=== PATIENT | female | born 1955 | race Caucasian/White ===

== ENCOUNTER → 2018-01-04 09:33 | Outpatient (CLI) | payer BC, SELFPAY ==
--- NOTE | 2018-01-04 09:41 | XR_ITS ---
XR ankle RT min 3V HISTORY: ITS.REASON: PAIN ORDERING PHYSICIAN: Bernice Winn PATIENT AGE: 62 years FINDINGS: No fracture or dislocation. No lytic or blastic change. There are mild hypertrophic changes at the medial malleolus region. Ankle joint space is well-preserved. Calcifications are present along the plantar surface of the foot at the region of the plantar fascia may be related to chronic plantar fasciitis. There is also a small calcaneal spur. IMPRESSION: 1. No acute finding of the ankle joint. 2. Mild hypertrophic changes of the medial malleolus. 3. Calcification along the plantar surface of the foot anterior to the calcaneus which may represent chronic plantar fasciitis
--- NOTE | 2018-01-04 09:41 | XR_ITS ---
XR hip LT 2-3V w/pelvis HISTORY: Left-sided hip pain ORDERING PHYSICIAN: Bernice Winn PATIENT AGE: 62 years FINDINGS: There are mild osteoarthritic changes of the left hip with slight decrease in the joint space medially. Hypertrophic changes are present at the greater trochanter and along the left ilium laterally. There is a well-circumscribed 2 cm calcific density in the right paracentral aspect of the pelvis and may represent small fibroid. No fracture or dislocation. There are degenerative changes of the left SI joint and of the facets on the left at L5-S1 IMPRESSION: 1. No acute fracture. 2. Mild osteoarthritic change of the left hip and SI joint
== END ==
PROVIDERS: PCP Nurse Practitioner Family; Visit Provider Nurse Practitioner Family
DX: M25.552 Pain in left hip (principal); M25.571 Pain in right ankle and joints of right foot; G89.29 Other chronic pain
CPT/HCPCS: 73502; 73610

== ENCOUNTER 2018-02-11 16:00 | Outpatient (RCR) | payer BC, SELFPAY | END 2018-02-25 13:32 | disposition home or self-care (01) | LOC: PT 16:00 | PROVIDERS: Family Provider Internal Medicine Adolescent Medicine; PCP Nurse Practitioner Family; Visit Provider Nurse Practitioner Family | DX: M25.552 Pain in left hip (principal); R26.9 Unspecified abnormalities of gait and mobility | CPT/HCPCS: 97033; 97110; 97163 ==

== ENCOUNTER → 2018-04-10 10:12 | Outpatient (CLI) | payer BC, SELFPAY ==
--- NOTE | 2018-04-10 | XR_ITS ---
XR abdomen min 2V HISTORY: ITS.REASON: DIARRHEA, HX OF PANCREATITIS ORDERING PHYSICIAN: Bernice Winn PATIENT AGE: 63 years COMPARISON: None FINDINGS: Lumbar scoliosis convex right. Surgical clip right upper quadrant. Scattered air-fluid levels are present within nondistended large bowel. No intestinal obstruction or free air. There is a rounded calcific density overlying the lower aspect of the sacrum on the right. Was present on previous CT scan of 06/22/2017 In the right adnexal area and may represent partially calcified exophytic fibroid or calcification of the right ovary. IMPRESSION: Nonspecific nonobstructive bowel gas pattern with scattered air-fluid levels in the large bowel which may be seen with diarrhea
[2018-04-10 10:16] LABS: Adenovirus F 40/41, stool Not Detected (NotDetected); Astrovirus Not Detected (NotDetected); Campylobacter Not Detected (NotDetected); Clostridium Difficile A/B, PCR Not Detected (NotDetected); Cryptosporidium Not Detected (NotDetected); Cyclospora Cayetanesis Not Detected (NotDetected); Entamoeba histolytica Not Detected (NotDetected); Enteroaggregative E coli Not Detected (NotDetected); Enteropathogenic E coli Not Detected (NotDetected); Enterotoxigenic E coli Not Detected (NotDetected); Giardia lamblia Not Detected (NotDetected); Norovirus Not Detected (NotDetected); Plesimonas Shigalloides, PCR Not Detected (NotDetected); Rotavirus A Not Detected (NotDetected); Salmonella, PCR Not Detected (NotDetected); Sapovirus Not Detected (NotDetected); Shiga-like toxin E coli Not Detected (NotDetected); Shigella Enterovasive E coli Not Detected (NotDetected); Vibrio Cholerae Not Detected (NotDetected); Vibrio, PCR Not Detected (NotDetected); Yersinia Entercolitica, PCR Not Detected (NotDetected)
[2018-04-10 17:14] LABS: Basophils % 0.5 % (0.1-2.0); Eosinophils # 0.4 K/mm3 (0.0-0.4); Eosinophils % 5.4 % (0.1-12.0); Hematocrit 40.3 % (37.0-47.0); Hemoglobin 13.5 g/dL (12.2-16.2); Lymphocytes # 2.4 K/mm3 (0.7-4.5); Lymphocytes % 32.2 K/mm3 (10-50); Mean Corpuscular HGB Conc 33.6 g/dL (31.8-35.4); Mean Corpuscular Hemoglobin 31.7 pg (27.0-31.2); Mean Corpuscular Volume 94.5 fl (81-99); Mean Platelet Volume 7.5 fl (7.4-10.4); Monocytes # 0.7 K/mm3 (0.1-1.0); Monocytes % 9.4 % (1.7-9.3); Neutrophils % 52.5 % (37.0-80.0); Platelet Count 255 K/mm3 (142-424); Red Blood Count 4.26 M/mm3 (4.20-5.40); Red Cell Distribution Width 13.2 % (11.5-17.5); White Blood Count 7.5 K/mm3 (4.8-10.8)
[2018-04-10 17:21] LABS: Alanine Aminotransferase 32 U/L (12-78); Albumin Level 3.4 gm/dL (3.4-5.0); Albumin/Globulin Ratio 1.1 (1.1-1.8); Alkaline Phosphatase 68 U/L (46-116); Amylase 48 U/L (25-125); Anion Gap 10.2 mEq/L (5-15); Aspartate Amino Transferase 20 U/L (15-37); Bilirubin,Total 0.4 mg/dL (0.2-1.0); Blood Urea Nitrogen 15 mg/dL (7-18); Calcium 8.6 mg/dL (8.5-10.1); Carbon Dioxide 31 mmol/L (21.0-32.0); Chloride 102 mmol/L (98-107); Creatinine,Serum 0.86 mg/dL (0.55-1.02); Estimated Glomerular Filt Rate 67 ml/min (>60); GFR (African American) 81 ML/MIN (>60); Glucose 129 mg/dL (74-106); Lipase 62 u/L (73-393); Potassium 4.2 mmoL/L (3.5-5.1); Sodium 139 mmol/L (136-145); Total Protein,Serum 6.4 gm/dL (6.4-8.2)
== END ==
PROVIDERS: Visit Provider Nurse Practitioner Family
DX: R19.7 Diarrhea, unspecified (principal); Z87.19 Personal history of other diseases of the digestive system
CPT/HCPCS: 36415; 74019; 80053; 82150; 83690; 85025; 87507

== ENCOUNTER 2018-09-25 08:52 | Outpatient (CLI) | payer BC, SELFPAY ==
[2018-09-25 09:18] VITALS: RESP 18
[2018-09-25 09:24] LABS: Alanine Aminotransferase 26 U/L (12-78); Albumin Level 3.5 gm/dL (3.4-5.0); Alkaline Phosphatase 65 U/L (46-116); Amylase 57 U/L (25-115); Anion Gap 12.5 mEq/L (5-15); Aspartate Amino Transferase 15 U/L (15-37); Bilirubin,Total 0.5 mg/dL (0.2-1.0); Blood Urea Nitrogen 16 mg/dL (7-18); Calcium 9.2 mg/dL (8.5-10.1); Carbon Dioxide 28 mmol/L (21.0-32.0); Chloride 102 mmol/L (98-107); Estimated Glomerular Filt Rate 85 ml/min (>60); GFR (African American) 103 ML/MIN (>60); Globulin 3.6 gm/dl (1.3-3.2); Glucose 122 mg/dL (74-106); Lipase 94 u/L (73-393); Potassium 3.5 mmoL/L (3.5-5.1); Sodium 139 mmol/L (136-145); Total Protein,Serum 7.1 gm/dL (6.4-8.2)
[2018-09-25 09:27] LABS: Basophils % 0.3 % (0.1-2.0); Eosinophils # 0.2 K/mm3 (0.0-0.4); Eosinophils % 2.2 % (0.1-12.0); Hematocrit 40.8 % (37.0-47.0); Hemoglobin 12.9 g/dL (12.2-16.2); Lymphocytes # 2.3 K/mm3 (0.7-4.5); Mean Corpuscular HGB Conc 31.6 g/dL (31.8-35.4); Mean Corpuscular Volume 97.8 fl (81-99); Mean Platelet Volume 7.6 fl (7.4-10.4); Monocytes # 0.5 K/mm3 (0.1-1.0); Monocytes % 6.3 % (1.7-9.3); Neutrophils # 4.9 K/mm3 (1.8-7.8); Neutrophils % 62.2 % (37.0-80.0); Platelet Count 253 K/mm3 (142-424); Red Blood Count 4.17 M/mm3 (4.20-5.40); Red Cell Distribution Width 12.9 % (11.5-17.5); White Blood Count 7.8 K/mm3 (4.8-10.8)
--- NOTE | 2018-09-25 09:45 | PC.NURSE ---
09/25/18 0918 Toradol 30mg IM given per R deltoid. Pt abdirizak well
== END 2018-09-25 09:37 | disposition home or self-care (01) ==
LOC: LAB 08:53 → INF 09:06
PROVIDERS: PCP Nurse Practitioner Family; Visit Provider Nurse Practitioner Family
DX: M54.9 Dorsalgia, unspecified (principal); R19.7 Diarrhea, unspecified; R11.10 Vomiting, unspecified; Z87.442 Personal history of urinary calculi
CPT/HCPCS: 36415; 80053; 82150; 83690; 85025; 87040; 96372

== ENCOUNTER → 2018-09-26 07:55 | Outpatient (CLI) | payer BC, SELFPAY ==
--- NOTE | 2018-09-26 08:00 | CT_ITS ---
CT abdomen pelvis wo con CLINICAL INDICATION: Right flank pain ITS.REASON: HEMATURIA, MID BACK PAIN RT SIDE ORDERING PHYSICIAN: Bernice Winn PATIENT AGE: 63 years COMPARISON: 06/22/2017 TECHNIQUE: Axial images obtained with sagittal and coronal reformats. All CT scans at the facility use one or more dose reduction, viz: automated exposure control, ma/kV adjustment per patient size (including targeted exams where dose is matched to indication, i.e. head), or iterative reconstruction technique. PROCEDURE: Oral Contrast: None IV Contrast: None . FINDINGS: No acute finding in the lung bases. The liver, spleen, adrenal glands, pancreas, and kidneys have an unremarkable unenhanced appearance. No renal or ureteral calculi. There are 2 small calcific densities in the left pelvic region which are felt to be out of the plane of the ureter and due to small phleboliths having a similar appearance on 06/22/2017. There are postcholecystectomy changes. No evidence of appendicitis intestinal obstruction or free air. No evidence of diverticulitis. There are a few diverticula noted within the descending and sigmoid colon. There is a ringlike area of calcification in the right adnexal area and may be due to a small fibroid measuring 14 mm unchanged. No pelvic mass abnormal fluid collection or focal inflammatory changes evident within the pelvis There are degenerative changes in the lumbar spine. IMPRESSION: 1. No acute abdominal pelvic findings. No obstructing renal or ureteral calculi. 2. Nonacute findings as described above.
== END ==
PROVIDERS: PCP Internal Medicine Adolescent Medicine; Visit Provider Nurse Practitioner Family
DX: R31.9 Hematuria, unspecified (principal); M54.9 Dorsalgia, unspecified
CPT/HCPCS: 74176

== ENCOUNTER → 2020-09-07 09:06 | Outpatient (CLI) | payer BC, SELFPAY ==
--- NOTE | 2020-09-07 09:09 | MM_ITS ---
PROCEDURE: MM DIG SCREENING MAMM BI W/CAD Digital Breast Tomosynthesis Included CLINICAL INDICATION: SCREENING There is a history of breast cancer in patient's mother COMPARISON: MG DMSB DIG MAMM-SCREEN JULIANA from 03/18/2015 CR ABD2V XR abdomen min 2V from 04/10/2018 TECHNIQUE: Standard CC and MLO images and 3D Tomosynthesis was obtained. R2 CAD reviewed. FINDINGS: The breasts are composed primarily of fat with scattered fibroglandular densities throughout each breast. There are scattered benign-appearing microcalcifications in each breast. There is a stable benign-appearing nodular density upper-outer quadrant left breast likely an intramammary node. There is a subtle density central portion left breast which was seen previously but now there are associated microcalcifications and recommend the patient return for spot compression magnification view and ultrasound for additional evaluation. IMPRESSION: Fatty type breast parenchyma with possible developing asymmetric lesion left breast BI-RAD Category: 0 Need Additional Imaging Evaluation FOLLOW-UP: IMM Immediate Follow-up Recommended (A letter has been sent to the patient regarding results of the study.) Dictated by: Dr. Rajeev Castellano MD 09/08/2020 08:44 Dr. Rajeev Castellano MD in [place] 09/08/2020 08:44
--- NOTE | 2020-09-07 09:09 | XR_ITS ---
PROCEDURE: XR DEXA AXIAL SKELETON CLINICAL HISTORY: POST-MENOPAUSAL COMPARISON: No exams were available for comparison FINDINGS: The right hip BMD is 0.939 with a T-score of 0.8. The left hip BMD is 0.959 with a T-score of 0.1. The lumbar spine BMD is 1.392 with a T-score of 3.1. IMPRESSION: This patient is considered normal according to the World Health Organization criteria. Fracture risk is low. Based on these results a follow-up exam is recommended in 2 year. Dictated by: Yunior Zelaya MD 09/07/2020 20:46 Yunior Zelaya MD in [place] 09/08/2020 18:26
== END ==
PROVIDERS: PCP Nurse Practitioner Family; Visit Provider Nurse Practitioner Family
DX: Z12.31 Encounter for screening mammogram for malignant neoplasm of breast (principal); Z13.820 Encounter for screening for osteoporosis; Z78.0 Asymptomatic menopausal state
CPT/HCPCS: 77063; 77067; 77080

== ENCOUNTER 2020-10-26 09:00 | Outpatient (RCR) | payer BC, SELFPAY | END 2021-03-08 14:40 | disposition home or self-care (01) | LOC: PT 09:00 | PROVIDERS: PCP Internal Medicine Adolescent Medicine; Visit Provider Orthopaedic Surgery Adult Reconstructive Orthopaedic Surgery | DX: M25.512 Pain in left shoulder (principal) | CPT/HCPCS: 97010; 97014; 97016; 97110; 97140; 97163; 97164; G0283 ==

== ENCOUNTER 2021-01-12 12:55 | Outpatient (CLI) | payer BC, SELFPAY ==
[2021-01-12] VITALS (18 sets, daily range): BP systolic 108–128; BP diastolic 52–76; PULSE 80–95; RESP 16–18; TEMP 36.3–37.2; O2SAT 95–100; BMI 36.7
[2021-01-12 13:24] LABS: Basophils # 0.1 K/mm3 (0-0.2); Basophils % 0.7 % (0.1-2.0); Eosinophils # 0.3 K/mm3 (0.0-0.4); Eosinophils % 3.5 % (0.1-12.0); Lymphocytes # 2.7 K/mm3 (0.7-4.5); Lymphocytes % 32.5 % (10-50); Mean Corpuscular HGB Conc 25.3 g/dL (31.8-35.4); Mean Corpuscular Hemoglobin 16.4 pg (27.0-31.2); Mean Platelet Volume 9.2 fl (7.4-10.4); Monocytes # 0.6 K/mm3 (0.1-1.0); Monocytes % 6.7 % (1.7-9.3); Neutrophils # 4.6 K/mm3 (1.8-7.8); Neutrophils % 56.6 % (37.0-80.0); Platelet Count 314 K/mm3 (142-424); Red Blood Count 2.82 M/mm3 (4.20-5.40); Red Cell Distribution Width 19.7 % (11.5-17.5); White Blood Count 8.2 K/mm3 (4.8-10.8)
[2021-01-12 13:32] LABS: Hematocrit 18.3 % (37.0-47.0)
[2021-01-12 13:50] LABS: Hemoglobin 4.7 g/dL (12.2-16.2)
--- NOTE | 2021-01-12 15:45 | PC.NURSE ---
1545 - BLOOD TRANSFUSION RATE AT 100 ML/HR AT THIS TIME.
--- NOTE | 2021-01-12 16:15 | PC.NURSE ---
1615-INCREASED RATE TO 150 ML/HR AT THIS TIME.
--- NOTE | 2021-01-12 16:45 | PC.NURSE ---
1645 - INCREASED RATE TO 200 ML/HR AT THIS TIME.
[2021-01-12 21:55] LABS: Hematocrit 23.6 % (37.0-47.0); Hemoglobin 6.8 g/dL (12.2-16.2)
== END 2021-01-12 21:14 | disposition home or self-care (01) ==
PROVIDERS: PCP Internal Medicine Adolescent Medicine; Visit Provider Nurse Practitioner Family
DX: D64.9 Anemia, unspecified (principal); D58.2 Other hemoglobinopathies
CPT/HCPCS: 36415; 36430; 85014; 85018; 85025; 86850; P9016

== ENCOUNTER → 2021-01-14 08:00 | Outpatient (CLI) | payer BC, SELFPAY ==
[2021-01-14] VITALS (21 sets, daily range): BP systolic 101–133; BP diastolic 46–72; PULSE 72–92; RESP 18–20; TEMP 36.6–37.2; O2SAT 97–100; BMI 36.7
--- NOTE | 2021-01-14 12:00 | PC.NURSE ---
second unit of blood started. Verified by 2 RN's. patient eating lunch. no needs voiced by patient.
[2021-01-14 15:11] LABS: Hematocrit 30.4 % (37.0-47.0); Hemoglobin 9.4 g/dL (12.2-16.2)
== END ==
PROVIDERS: PCP Internal Medicine Adolescent Medicine; Visit Provider Internal Medicine Adolescent Medicine
DX: D64.9 Anemia, unspecified (principal)
CPT/HCPCS: 36415; 36430; 85014; 85018; G0463; P9016

== ENCOUNTER → 2021-01-16 07:46 | Outpatient (CLI) | payer BC, SELFPAY ==
[2021-01-16 08:01] LABS: Basophils # 0.1 K/mm3 (0-0.2); Basophils % 0.7 % (0.1-2.0); Eosinophils # 0.3 K/mm3 (0.0-0.4); Eosinophils % 2.8 % (0.1-12.0); Hemoglobin 10.2 g/dL (12.2-16.2); Lymphocytes # 2.1 K/mm3 (0.7-4.5); Lymphocytes % 24.2 % (10-50); Mean Corpuscular HGB Conc 29.2 g/dL (31.8-35.4); Mean Corpuscular Hemoglobin 21.7 pg (27.0-31.2); Mean Corpuscular Volume 74.2 fl (81-99); Mean Platelet Volume 8.4 fl (7.4-10.4); Monocytes # 0.7 K/mm3 (0.1-1.0); Monocytes % 7.4 % (1.7-9.3); Neutrophils # 5.7 K/mm3 (1.8-7.8); Neutrophils % 64.9 % (37.0-80.0); Platelet Count 242 K/mm3 (142-424); Red Blood Count 4.71 M/mm3 (4.20-5.40); Red Cell Distribution Width 21.4 % (11.5-17.5); White Blood Count 8.8 K/mm3 (4.8-10.8)
[2021-01-16 08:10] LABS: Anion Gap 7.3 mEq/L (5-15); Blood Urea Nitrogen 9 mg/dl (7-17); Calcium 8.9 mg/dl (8.4-10.2); Carbon Dioxide 27 mmol/L (22.0-30.0); Chloride 107 mmol/L (98-107); Estimated Glomerular Filt Rate 84 ml/min (>60); GFR (African American) 102 ML/MIN (>60); Glucose 109 mg/dl (74-100); Potassium 4.3 mmoL/L (3.5-5.1); Sodium 137 mmol/L (136-145)
[2021-01-16 16:58] LABS: Vitamin B12 > 1000 pg/mL (239-931)
== END ==
PROVIDERS: Nurse Practitioner Family; Visit Provider Internal Medicine Adolescent Medicine
DX: Z01.812 Encounter for preprocedural laboratory examination (principal); Z20.822 Contact with and (suspected) exposure to COVID-19; D64.9 Anemia, unspecified; Z13.810 Encounter for screening for upper gastrointestinal disorder
CPT/HCPCS: 36415; 80048; 82607; 82746; 85025; U0003

== ENCOUNTER 2021-01-18 07:36 | Day surgery (SDC) | payer BC, SELFPAY ==
[2021-01-16 15:51] VITALS: BMI 35.3
[2021-01-18] VITALS (8 sets, daily range): BP systolic 89–138; BP diastolic 56–77; PULSE 75–88; RESP 18–20; TEMP 36.3; O2SAT 98–100
--- NOTE | 2021-01-18 07:51 | HMH.SCOPE ---
- Procedure: Date: 01/18/21 Patient Date of :: 1955 Procedure Performed:: 1. Esophagogastroduodenoscopy with biopsies 2. Total colonoscopy to terminal ileum with polypectomy using a hot snare after injection of Eleview Indications:: Patient is a 65-year-old female referred by Luna Winn for upper endoscopy. I had seen the patient in the past for biliary pancreatitis. I also had performed colonoscopy on her on 05/13/2018 for change in bowel habits. She had no polyps but had biopsy chronic lymphocytic colitis. Recently she has had some anemia. She is required 4 unit blood transfusion. She denies any change in her stools. Given the potential for GI blood loss anemia plan was made for upper endoscopy and colonoscopy. Performing Provider:: Jeevan Shaw MD Referring Provider:: Luna Winn Sedation:: MAC sedation Procedure:: Patient was taken to endoscopy procedure room. She was positioned in lateral decubitus position. Adequate intravenous sedation was achieved with anesthesia titration of propofol. Olympus endoscope was inserted via the oropharynx. Is advanced to the esophagus. Esophagus appeared unremarkable. Stomach was cannulated and insufflated. Retroflexion revealed no evidence of any appreciable hiatal hernia. Pylorus was traversed. Duodenum appeared unremarkable. Within the gastric lumen gastric antral mucosal biopsy was obtained for CLOtest for H. pylori. Gastric biopsy was obtained for histopathologic analysis. Distal esophageal biopsy was obtained. Endoscope was withdrawn. Patient was positioned for colonoscopy. Digital examination was performed which was unremarkable. Variable stiffness Olympus colonoscope was inserted via the anus. It was advanced to the cecum. Colonic preparation was good. Ileocecal valve and appendiceal orifice were clearly identified. Colonoscope was advanced a short distance into the terminal ileum which appeared grossly normal. Colonoscope was withdrawn through the colon. In the ascending colon there was a subtle but relatively large flat sessile adenomatous polyp. Appreciable amount of Eleview was injected submucosally circumferentially around the polyp. Ultimately the polyp was able to be removed in a piecemeal fashion using hot snare. It appears that the polyp had been removed in its entirety. This was sent as the ascending colon polyp. At the completion of the polypectomy Melissa ink was injected submucosally to joanna the area for future reference. Endoscope was withdrawn through the remainder of the colon with careful surveillance. There were a few scattered left-sided diverticuli. Retroflexion within the rectum revealed no evidence of any bleeding internal hemorrhoids. Colonoscope was withdrawn. Findings:: Normal upper endoscopy Ascending colon polyp, large, flat and sessile Rare diverticuli Recommendations:: No obvious source on upper endoscopy or colonoscopy which would attribute to potential gastrointestinal source of blood loss resulting in her anemia. Of course small bowel etiology cannot be ruled out. Likely repeat colonoscopy 1 year given the early development of this polyp and due to its size. Complications:: None immediately apparent Estimated blood obtained (mL): 4
[2021-01-18 08:35] LABS: POC Glucose,Bedside 124 (70-110)
--- NOTE | 2021-01-18 11:04 | HMH.ANESCL ---
[facility] Anesthesia Checklist - Patient Identification Patient Identification: Arm Band - Structural Data Admitted From: Home Planned Operative Procedure/s: EGD/Colonoscopy Consent for Planned Operative Procedure(s) Verified: Yes Verified Documents: Surgical Consent, History and Physical - NPO Status Verified Time NPO: 00:00 - Additional verifications Anesthesia Reactions: No - Airway Assessment C-Spine Mobility Assessed: Yes TMJ Mobility Assessed: Yes Dentition: Good Dentition - Neurological Assessment Level of Consciousness: Awake, Alert - Anesthesia Plan Anesthesia Risk discussed: Yes Anesthesia Plan: Verified ASA Class: III Anesthesia Type: MAC [facility] History Medical History: Reports:: Diabetes Mellitus Type 2, Gastroesophageal Reflux Disease(GERD), Hyperlipidemia, Hypertension Denies:: Cancer, Diabetes Mellitus Type 1, Internal Pacemaker, Lung Disease, MRSA, Seizures *Have you ever received a pneumonia vaccine?: Yes *Have you received a flu vaccine this season?: Yes Other Medical History: Reports: Anemia, Arthritis Anesthesia experience/problems:: None Other Surgeries: Yes: Cholecystectomy, Colonoscopy, Tubal Ligation. No: Pacemaker Amputation: No Fractures: No - *Social History Last grade of school completed: High school graduate Smoking Status: Never smoker Alcohol Intake: never Substance Use Type: denies use *Occupational Status:: retired Housing: house Household Members: spouse *Travel in the last 8 weeks: None Family Hx:: Cancer, Diabetes
== END 2021-01-18 10:48 | disposition home or self-care (01) ==
LOC: OUTP 07:37
PROVIDERS: PCP Internal Medicine Adolescent Medicine; Visit Provider Surgery
PROC: 0DJ08ZZ Inspection of Upper Intestinal Tract, Via Natural or Artificial Opening Endoscopic (ICD-10-PCS; CPT 43235; principal; 2021-01-18 08:45)
DX: D64.9 Anemia, unspecified (principal); K63.5 Polyp of colon; K57.30 Diverticulosis of large intestine without perforation or abscess without bleeding; E11.9 Type 2 diabetes mellitus without complications; E78.5 Hyperlipidemia, unspecified; I10 Essential (primary) hypertension; K21.9 Gastro-esophageal reflux disease without esophagitis; Z83.3 Family history of diabetes mellitus; Z80.9 Family history of malignant neoplasm, unspecified; Z79.82 Long term (current) use of aspirin; Z79.899 Other long term (current) drug therapy
CPT/HCPCS: 45385; 45381; 43239; 82962; 87339; J2704

== ENCOUNTER → 2021-01-20 14:01 | Outpatient (CLI) | payer BC, SELFPAY ==
--- NOTE | 2021-01-20 14:03 | MM_ITS ---
PROCEDURE: MM DIG MAMM DX UNILAT LT CAD Digital Breast Tomosynthesis Included CLINICAL INDICATION: ABN MAMM OF LT BREAST COMPARISON: MG DMSB DIG MAMM-SCREEN JULIANA from 03/18/2015 MG MM DIG SCREENING MAMM BI W/CAD from 09/07/2020 US US BREAST LT COMPLETE from 01/20/2021 TECHNIQUE: Standard CC and MLO images and 3D Tomosynthesis was obtained. R2 CAD reviewed. FINDINGS: Spot-compression MLO and CC views were obtained and 90 degree lateral view. The small area of subtle increased density with somewhat ill-defined borders with a central tiny benign-appearing microcalcification. Ultrasound performed same date showed no suspicious correlation this location. IMPRESSION: Probable small lipoma with no suspicious characteristics seen BI-RAD Category: 2 Benign Finding(s) FOLLOW-UP: 1YR 1 Year Follow-up (A letter has been sent to the patient regarding results of the study.) Dictated by: Dr. Rajeev Castellano MD 01/20/2021 15:49 Dr. Rajeev Castellano MD in [place] 01/20/2021 15:49
--- NOTE | 2021-01-20 14:04 | US_ITS ---
PROCEDURE: US BREAST LT COMPLETE CLINICAL INDICATION: ABN MAMM OF LT BREAST COMPARISON: No exams were available for comparison FINDINGS: There are 2 small slightly hyperechoic lesions within the breast with homogeneous echogenicity likely representing small lipomas 1 at the 2 o'clock position mid breast measures 1.6 x 0.5 by 1.4 cm. The other 1 is located 12 o'clock position outer breast measuring 0.6 x 0.4 by 0.6 cm. There is no suspicious cystic or solid lesions seen. There is a normal appearing node in the axilla. IMPRESSION: No suspicious ultrasound findings the recommend the patient continue with yearly screening mammography Dictated by: Dr. Rajeev Castellano MD 01/20/2021 15:52 Dr. Rajeev Castellano MD in [place] 01/20/2021 15:52
== END ==
PROVIDERS: PCP Nurse Practitioner Family; Visit Provider Nurse Practitioner Family
DX: R92.8 Other abnormal and inconclusive findings on diagnostic imaging of breast (principal)
CPT/HCPCS: 76641; 77061; 77065; G0279

== ENCOUNTER → 2021-02-02 08:32 | Outpatient (CLI) | payer MEDICARE, SELFPAY ==
[2021-02-02 08:54] LABS: Basophils # 0.1 K/mm3 (0-0.2); Basophils % 0.8 % (0.1-2.0); Eosinophils # 0.2 K/mm3 (0.0-0.4); Eosinophils % 4.3 % (0.1-12.0); Hematocrit 35.8 % (37.0-47.0); Lymphocytes # 2.2 K/mm3 (0.7-4.5); Lymphocytes % 39.9 % (10-50); Mean Corpuscular HGB Conc 30.6 g/dL (31.8-35.4); Mean Corpuscular Hemoglobin 23.6 pg (27.0-31.2); Mean Corpuscular Volume 77.1 fl (81-99); Mean Platelet Volume 8.2 fl (7.4-10.4); Monocytes # 0.3 K/mm3 (0.1-1.0); Monocytes % 6.3 % (1.7-9.3); Neutrophils # 2.7 K/mm3 (1.8-7.8); Neutrophils % 48.7 % (37.0-80.0); Platelet Count 261 K/mm3 (142-424); Red Blood Count 4.64 M/mm3 (4.20-5.40); Red Cell Distribution Width 23.1 % (11.5-17.5); White Blood Count 5.5 K/mm3 (4.8-10.8)
[2021-02-02 09:34] LABS: Chloride 104 mmol/L (98-107)
[2021-02-02 09:35] LABS: Potassium 4.3 mmoL/L (3.5-5.1); Sodium 138 mmol/L (136-145)
[2021-02-02 09:38] LABS: Anion Gap 12.3 mEq/L (5-15); Blood Urea Nitrogen 11 mg/dl (7-17); Calcium 9.2 mg/dl (8.4-10.2); Carbon Dioxide 26 mmol/L (22.0-30.0); Estimated Glomerular Filt Rate 84 ml/min (>60); GFR (African American) 102 ML/MIN (>60); Glucose 95 mg/dl (74-100); Iron 129 ug/dL (37-170)
[2021-02-02 09:47] LABS: Total Iron Binding Capacity 409 ug/dL (265-497)
[2021-02-02 10:13] LABS: Ferritin 13.7 ng/ml (11.1-264)
== END ==
PROVIDERS: Visit Provider Nurse Practitioner Family
DX: D64.9 Anemia, unspecified (principal)
CPT/HCPCS: 36415; 80048; 82728; 83540; 83550; 85025

== ENCOUNTER → 2021-05-20 08:54 | Outpatient (CLI) | payer MEDICARE, SELFPAY ==
[2021-05-20 09:48] LABS: Basophils # 0.1 K/mm3 (0-0.2); Basophils % 1.1 % (0.1-2.0); Eosinophils # 0.3 K/mm3 (0.0-0.4); Eosinophils % 4.1 % (0.1-12.0); Hematocrit 42.8 % (37.0-47.0); Hemoglobin 13.7 g/dL (12.2-16.2); Lymphocytes # 2.5 K/mm3 (0.7-4.5); Lymphocytes % 37.7 % (10-50); Mean Corpuscular HGB Conc 31.9 g/dL (31.8-35.4); Mean Corpuscular Hemoglobin 32.1 pg (27.0-31.2); Mean Corpuscular Volume 100.6 fl (81-99); Mean Platelet Volume 8.1 fl (7.4-10.4); Monocytes # 0.5 K/mm3 (0.1-1.0); Monocytes % 6.8 % (1.7-9.3); Neutrophils # 3.4 K/mm3 (1.8-7.8); Neutrophils % 50.4 % (37.0-80.0); Platelet Count 230 K/mm3 (142-424); Red Blood Count 4.26 M/mm3 (4.20-5.40); Red Cell Distribution Width 14.3 % (11.5-17.5); White Blood Count 6.6 K/mm3 (4.8-10.8)
[2021-05-20 10:15] LABS: Alanine Aminotransferase 36 U/L (12-78); Albumin Level 4.3 g/dl (3.5-5.0); Albumin/Globulin Ratio 1.4 (1.1-1.8); Alkaline Phosphatase 72 U/L (38-126); Aspartate Amino Transferase 40 U/L (14-36); Bilirubin,Total 0.6 mg/dl (0.2-1.3); Blood Urea Nitrogen 19 mg/dl (7-17); Calcium 9.8 mg/dl (8.4-10.2); Carbon Dioxide 31 mmol/L (22.0-30.0); Chloride 99 mmol/L (98-107); Chol/HDL Ratio 3.3 (1-3.5); Cholesterol 224 mg/dl (140-200); Estimated Glomerular Filt Rate 72 ml/min (>60); GFR (African American) 87 ML/MIN (>60); Glucose 118 mg/dl (74-100); HDL Cholesterol 68 mg/dl (40-60); Sodium 140 mmol/L (136-145); Total Protein,Serum 7.3 g/dl (6.3-8.2); Triglycerides 195 mg/dl (30-150); VLDL Cholesterol 39 mg/dL (0-40)
[2021-05-20 10:25] LABS: Hemoglobin A1C 6.8 % (4.0-6.0)
== END ==
PROVIDERS: Visit Provider Nurse Practitioner Family
DX: E11.9 Type 2 diabetes mellitus without complications (principal); D64.9 Anemia, unspecified; Z79.4 Long term (current) use of insulin
CPT/HCPCS: 36415; 80053; 80061; 83036; 85025

== ENCOUNTER 2022-06-15 06:10 | Day surgery (SDC) | payer MEDICARE, SELFPAY ==
[2022-06-13 15:09] VITALS: BMI 36.0
[2022-06-15 06:59] VITALS: BP 128/87; PULSE 87; RESP 20; TEMP 36.3; O2SAT 95
--- NOTE | 2022-06-15 07:14 | P.PN_ITS ---
[facility] Medical History Diabetes mellitus, type 2 History of gastroesophageal reflux (GERD) Hyperlipidemia Hypertension Surgical History History of laparoscopic cholecystectomy History of lithotripsy History of tubal ligation Family History Other Family history of Alzheimer's disease History of breast cancer Social History Smoking Status: Never smoker second hand exposure: No alcohol intake: never substance use type: denies use current occupational status: retired Travel in the last 8 weeks: None household members: spouse housing: house current occupational exposures/hazards: No caffeine: Yes [facility] Anesthesia Checklist Patient Identification Patient Identification: Arm Band and Verbal (Name & ) Structural Data Admitted From: Home Planned Operative Procedure/s: Colonoscopy Consent for Planned Operative Procedure(s) Verified: Yes NPO Status Verified Time NPO: 04:00 Additional verifications Anesthesia Reactions: No Airway Assessment C-Spine Mobility Assessed: Yes TMJ Mobility Assessed: Yes Dentition: Poor Dentition Neurological Assessment Level of Consciousness: Awake Hx Seizures: No Numbness or tingling in extremities: No Anesthesia Plan Anesthesia Risk discussed: Yes Anesthesia Plan: Verified ASA Class: III Anesthesia Type: MAC
[2022-06-15 07:26] VITALS: O2SAT 95
--- NOTE | 2022-06-15 08:13 | HMH.SCOPE ---
Procedure: Date: 06/15/22 Patient Date of :: 1955 Procedure Performed:: Total colonoscopy to terminal ileum with polypectomy using snare Indications:: Patient is a 67-year-old female with a history of anemia. I had performed EGD and colonoscopy on her in 2000. She had a large subtle ascending colon polyp which required injection of an appreciable amount of Eleview to raise the polyp and piecemeal removal using hot snare. This area was marked with Melissa ink. Pathology on this large flat sessile ascending colon polyp returned as tubular adenoma. Performing Provider:: Jeevan Shaw MD Referring Provider:: Luna Winn Sedation:: MAC sedation Procedure:: Patient history was obtained and appropriate physical examination was performed. Patient's medications and allergies were reviewed. Informed consent was obtained after explaining the benefits, alternatives, and risks of the procedure including, but not limited to, bleeding, perforation, missed lesions, and adverse reaction to anesthesia medications. Patient was transported to endoscopy procedure room. Patient was connected to monitoring devices. Throughout the procedure the patient's blood pressure, pulse, and oxygen saturations were monitored continuously. Patient identification and planned procedure were verified by the staff. Patient was positioned in lateral decubitus position. Digital anorectal exam was performed. Variable stiffness Olympus colonoscope was inserted and advanced under direct visualization to the cecum. Adequacy of the colonic preparation was noted. The colonoscope was advanced a short distance into the terminal ileum. The colonoscope was then slowly withdrawn while carefully examining the color, texture, anatomy, and integrity of the mucosoa circumferentially. Within the rectum retroflexion was performed. Colonoscope was then withdrawn. Findings:: She had evidence of possible recurrent polyps near the previous site which was removed using hot snare with residual tissue removed with cold biopsy forceps. There was a small adenomatous appearing polyp adjacent in the same region removed with cold snare. There were rare sigmoid diverticuli. Colonic preparation was moderate. Recommendations:: Likely repeat colonoscopy once again in 1 year given possible recurrent polyp as well as additional polyp. Complications:: None immediately apparent Estimated blood obtained (mL): 2
[2022-06-15 08:15] VITALS: BP 106/70; PULSE 100; RESP 14; TEMP 36.3; O2SAT 93
[2022-06-15 08:25] VITALS: BP 110/68; PULSE 93; RESP 16; O2SAT 95
[2022-06-15 08:35] VITALS: BP 104/70; PULSE 83; RESP 18; O2SAT 95
[2022-06-15 08:45] VITALS: BP 103/70; PULSE 83; RESP 18; O2SAT 96
[2022-06-16 15:16] LABS: POC Glucose,Bedside 148 (70-110)
== END 2022-06-15 08:50 | disposition home or self-care (01) ==
PROVIDERS: PCP Nurse Practitioner Family; Visit Provider Surgery
PROC: 0DJD8ZZ Inspection of Lower Intestinal Tract, Via Natural or Artificial Opening Endoscopic (ICD-10-PCS; principal; 2022-06-15 07:30)
DX: Z12.11 Encounter for screening for malignant neoplasm of colon (principal); Z86.010 Personal history of colon polyps; K63.5 Polyp of colon; E11.9 Type 2 diabetes mellitus without complications; Z79.899 Other long term (current) drug therapy
CPT/HCPCS: 45380; 45385; 82962; 88305; J2704

== ENCOUNTER → 2023-05-27 06:39 | Outpatient (CLI) | payer MEDICARE, SELFPAY ==
--- NOTE | 2023-05-27 | CA_ITS ---
APPROVED REPORT Exam: Pharmacologic Technologist: Daisy Sanders Ht: 5 ft 4 in Wt: 200 lbs BSA: 1.96 m2 HR: 63 bpm BP: 130/70 mmHg Rhythm: NSR Indications: Palpitations Medical History Medications: insulin, Benzapril, Crestor, Pantoprazole Stress Test Details Test: LEXISCAN HR Resting HR: 64 bpm Max Heart Rate (APMHR): 153 bpm Max HR Achieved: 93 bpm Target HR (85% APMHR): 130 bpm % of APMHR: 61 Recovery HR: 72 bpm BP Resting BP: 130.0/70.0 mmHg Max BP: 134.0/65.0 mmHg Recovery BP: 124.0/64.0 mmHg ECG Resting ECG: Sinus rhythm Stress ECG: No significant ST changes Arrhythmia: None Clinical Exercise duration: 04:01 min Highest Stage Achieved: Stress ECG Conclusion Symptoms: Dizziness, Nausea ST-T Changes: No significant ST changes Arrhythmias/Ectopy: None Conclusion: Unremarkable Lexiscan stress test. Myoview images are reported separately. Test Summary REST . . . . . . . Resting REST 10:45 . . 64 . 130/ 70 . . Stage 1 . . . . . . . Myoview Injected Stage 1 01:00 . . 81 . . . . Stage 2 01:00 . . 84 . 125/ 69 . . Stage 3 01:00 . . 76 . 131/ 68 . . Stage 4 01:00 . . 75 . 129/ 68 . . Stage 4 01:01 . . 75 . 129/ 68 . Stop exercise at 04:01 RECOVERY 01:00 . . 82 . 118/ 65 . . RECOVERY 02:00 . . 75 . 126/ 65 . . RECOVERY 03:00 . . 77 . 127/ 64 . . RECOVERY 04:00 . . 71 . 134/ 65 . . RECOVERY 04:57 . . 70 . 124/ 64 . . Electronically signed by : Iris Rasheed MD 05/27/2023 23:03:50
--- NOTE | 2023-05-27 06:45 | NM_ITS ---
APPROVED REPORT Exam: Nuclear Stress Test Indication: HTN, DM, HYPERLIPIDEMIA, FM HX, C.P., PALPITATIONS, SYNCOPE, FATIGUE Patient Location: Outpatient Stress Tech: Daisy Sanders [place] Tech:Ankita Schwartz, MURPHY RT (R)(N)(M) Ht: 5 ft 4 in Wt: 200 lbs Bra Size: DD HR: 63 bpm BP: 130/70 mmHg BSA: 1.96 m2 Rhythm: NSR TID: 1.89 BMI: 34.3 History: HTN, DM, HYPERLIPIDEMIA, FM HX, C.P., PALPITATIONS, SYNCOPE, FATIGUE Procedure: Patient received 0.4 mg of intravenous Lexiscan, resting heart rate 63 bpm, resting blood pressure 130/70 mmHg, with Lexiscan maximum heart rate achieved was 85 bpm which is % of the maximum predicted heart rate and blood pressure was 125/69 mmHg. With Lexiscan, patient denied any complaint of chest pain. Cardiac Stress and Resting SPECT Images: Cardiac Stress and Resting SPECT images were obtained using technetium 99m Myoview 31.8 mCi stress and 10.07 mCi at rest. Raw images demonstrate significant soft tissue overlap, as well as radiotracer GI uptake in close proximity to the inferior LV wall border. This is especially noted in the resting stress images. Findings may affect the diagnostic interpretation of the study findings. Resting images demonstrate minimal cardiac uptake and are therefore difficult to interpret. Stress imaging in supine and prone positions demonstrate a medium sized, moderate perfusion defect in the mid to distal anterior LV wall involving the anteroapical region. Reversibility of this defect cannot be evaluated due to inadequate resting images. There is increased transient ischemic dilatation (TID measured at 1.89), which may be suggestive of balanced ischemia or multivessel disease. However, the validity of this finding is questionable in the setting of uninterpretable resting images. Gated imaging demonstrates normal global and regional LV systolic function. LVEF is calculated at 62%. Conclusion: Raw images demonstrate significant soft tissue overlap, as well as radiotracer GI uptake in close proximity to the inferior LV wall border. This is especially noted in the resting stress images. Findings may affect the diagnostic interpretation of the study findings. Resting images demonstrate minimal cardiac uptake and are therefore difficult to interpret. Stress imaging in supine and prone positions demonstrate a medium sized, moderate perfusion defect in the mid to distal anterior LV wall involving the anteroapical region. Reversibility of this defect cannot be evaluated due to inadequate resting images. There is increased transient ischemic dilatation (TID measured at 1.89), which may be suggestive of balanced ischemia or multivessel disease. However, the validity of this finding is questionable in the setting of uninterpretable resting images. Gated imaging demonstrates normal global and regional LV systolic function. LVEF is calculated at 62%. Overall, this is a nondiagnostic nuclear stress test. An alternative diagnostic modality to evaluate for ischemia is recommended, if clinically indicated. Electronically signed by : Iris Rasheed MD 05/27/2023 23:10:23
== END ==
PROVIDERS: PCP Nurse Practitioner Family; Visit Provider Nurse Practitioner Family
DX: Z01.810 Encounter for preprocedural cardiovascular examination (principal); R07.9 Chest pain, unspecified; R00.2 Palpitations
CPT/HCPCS: 78452; 93017; A9502; J2785

== ENCOUNTER 2023-07-12 11:38 | Day surgery (SDC) | payer MEDICARE, SELFPAY ==
[2023-07-10 13:25] VITALS: BMI 34.3
--- NOTE | 2023-07-12 11:44 | HMH.SCOPE ---
Procedure: Date: 07/12/23 Patient Date of :: 1955 Procedure Performed:: Total colonoscopy to terminal ileum with polypectomy using cold snare after injection of Eleview submucosally Indications:: Patient is a 68-year-old female. She had undergone EGD as well as colonoscopy on 01/18/2021. At that time this was most notable for a large subtle sessile ascending colon polyp which required injection of Eleview to raise the polyp and piecemeal polypectomy using hot snare. The area was marked with Melissa ink. Pathology returned as a large flat sessile a sending tubular adenoma. Given the large size of this polyp I performed a colonoscopy on 06/15/2022. There is evidence of possible recurrent polyp at the previous polypectomy site which was removed using hot snare and cold biopsy forceps. Pathology returned as tubular adenoma. She also had an additional adjacent but separate tubular adenoma. It was recommended she undergo follow-up colonoscopy in 1 year to evaluate for recurrence. Performing Provider:: Jeevan Shaw MD Referring Provider:: Luna Winn Sedation:: MAC sedation Procedure:: Patient history was obtained and appropriate physical examination was performed. Patient's medications and allergies were reviewed. Informed consent was obtained after explaining the benefits, alternatives, and risks of the procedure including, but not limited to, bleeding, perforation, missed lesions, and adverse reaction to anesthesia medications. Patient was transported to endoscopy procedure room. Patient was connected to monitoring devices. Throughout the procedure the patient's blood pressure, pulse, and oxygen saturations were monitored continuously. Patient identification and planned procedure were verified by the staff. Patient was positioned in lateral decubitus position. Digital anorectal exam was performed. Variable stiffness Olympus colonoscope was inserted and advanced under direct visualization to the cecum. Adequacy of the colonic preparation was noted. The colonoscope was advanced a short distance into the terminal ileum. The colonoscope was then slowly withdrawn while carefully examining the color, texture, anatomy, and integrity of the mucosoa circumferentially. Within the rectum retroflexion was performed. Colonoscope was then withdrawn. . Colonic preparation was fair as there was particulate stool throughout the colon resembling course sand or fine gravel. This could not be completely cleared with high-volume trans colonoscopic irrigation and suctioning. Prolonged evaluation was performed within the cecum and ascending colon. Previous tattoo site was identified. Ultimately relatively subtle appearing flat sessile irregular polypoid appearing tissue was noted in this region. It measured about 10 mm. Elleview was injected submucosally around the polypoid appearing tissue. Initially plan was made for polypectomy using the 13 mm hot snare. However this proved technically undesirable when attempted. Therefore 9 mm cold snare was inserted. Lesion was able to be removed in its entirety with cold snare. Colonoscope was then withdrawn through the remainder of the colon with careful surveillance. There were some diverticuli noted. . Findings:: Fair colonic perforation Flat sessile adenomatous lesion ascending colon Rare diverticuli Recommendations:: Likely plan for once again repeat colonoscopy 1 year given the probable recurrent nature of this lesion. Complications:: None immediately apparent Estimated blood obtained (mL): 3 Colonoscopy Component Colonoscopy Component Was a colonoscopy performed during today's procedure?: Yes Recommended follow up colonoscopy of at least 10 years?: No If no, follow up colonoscopy recommended in ___ years?: See above Reason for not recommending >/= 10 yr follow-up interval?: See above
[2023-07-12 12:01] VITALS: BP 135/75; PULSE 79; RESP 18; TEMP 36.6; O2SAT 93
[2023-07-12 12:10] LABS: POC Glucose,Bedside 87 (70-110)
--- NOTE | 2023-07-12 12:19 | EXP.ANES.CKL ---
[facility] Disclaimer: The information contained in this section may have been updated after the patient was seen, as this information can be updated by other users. Medical History Diabetes mellitus, type 2 History of gastroesophageal reflux (GERD) Hyperlipidemia Hypertension Surgical History History of colonoscopy History of laparoscopic cholecystectomy History of lithotripsy History of tubal ligation Family History Other Family history of Alzheimer's disease History of breast cancer Social History Smoking Status: Never smoker second hand exposure: No alcohol intake: never substance use type: denies use current occupational status: retired Travel in the last 8 weeks: None household members: spouse housing: house current occupational exposures/hazards: No caffeine: Yes [facility] Anesthesia Checklist Patient Identification Patient Identification: Arm Band, Family and Verbal (Name & ) Structural Data Admitted From: Home Planned Operative Procedure/s: Colonoscopy Verified Documents: Surgical Consent and History and Physical NPO Status Verified Time NPO: 08:00 Chart Verification Results Verified: CBC and BMP Additional verifications Fingerstick Blood Glucose: 87 Patient : No Anesthesia Reactions: No Cardiovascular Assessment Heart Sounds: S1 & S2 Pulse Rhythm: Irregular Peripheral Edema: No Airway Assessment Mallampati Score:: Class II C-Spine Mobility Assessed: Yes TMJ Mobility Assessed: Yes Dentition: Good Dentition Neurological Assessment Level of Consciousness: Awake, Alert, Appropriate and Follows Commands Hx Seizures: No Numbness or tingling in extremities: No Anesthesia Plan Anesthesia Risk discussed: Yes Anesthesia Plan: Verified ASA Class: III Anesthesia Type: MAC
[2023-07-12 12:26] VITALS: O2SAT 95
[2023-07-12 13:02] VITALS: BP 82/46; PULSE 81; RESP 18; TEMP 36.1; O2SAT 95
[2023-07-12 13:12] VITALS: BP 87/49; PULSE 72; RESP 18; O2SAT 94
[2023-07-12 13:22] VITALS: BP 111/60; PULSE 73; RESP 18; O2SAT 98
== END 2023-07-12 13:32 | disposition home or self-care (01) ==
PROVIDERS: PCP Nurse Practitioner Family; Visit Provider Surgery
PROC: 0DJD8ZZ Inspection of Lower Intestinal Tract, Via Natural or Artificial Opening Endoscopic (ICD-10-PCS; CPT 45385; principal; 2023-07-12 13:00)
DX: Z12.11 Encounter for screening for malignant neoplasm of colon (principal); Z86.010 Personal history of colon polyps; D12.2 Benign neoplasm of ascending colon; E11.9 Type 2 diabetes mellitus without complications
CPT/HCPCS: 45385; 82962; 88305; J2704

== ENCOUNTER 2023-10-31 08:00 | Outpatient (RCR) | payer MEDICARE, SELFPAY | END 2023-10-31 09:45 | disposition home or self-care (01) | LOC: PT 08:00 | PROVIDERS: PCP Nurse Practitioner Family; Visit Provider Orthopaedic Surgery Adult Reconstructive Orthopaedic Surgery | DX: M16.11 Unilateral primary osteoarthritis, right hip (principal); Z96.641 Presence of right artificial hip joint | CPT/HCPCS: 97010; 97014; 97110; 97116; 97163; 97164; 97530; G0283 ==

== ENCOUNTER 2023-11-29 15:52 | Outpatient (CLI) | payer MEDICARE, SELFPAY | END 2023-11-29 23:59 | LOC: RAD 15:52 | PROVIDERS: PCP Nurse Practitioner Family; Visit Provider Nurse Practitioner Family | DX: Z12.31 Encounter for screening mammogram for malignant neoplasm of breast (principal) | CPT/HCPCS: 77063; 77067 ==

== ENCOUNTER 2024-07-10 10:33 | Day surgery (SDC) | payer MEDICARE, SELFPAY ==
--- NOTE | 2024-07-10 11:03 | HMH.SCOPE ---
Procedure: Date: 07/10/24 Patient Date of :: 1955 Procedure Performed:: Total colonoscopy to terminal ileum with polypectomy Indications:: Patient is a 69-year-old female with history of anemia. I had performed EGD and colonoscopy on 01/18/2021 which was most notable for large subtle sessile ascending colon polyp which required Eleview injection and piecemeal polypectomy using hot snare. The area was marked. This returned as sessile ascending tubular adenoma. Given the large size of this polyp she underwent follow-up colonoscopy on 06/15/2022 at which time there was possible recurrent polyp at the previous polypectomy site which was removed using hot snare and biopsy forceps. Pathology returned as tubular adenoma. She also had an additional adjacent but separate tubular adenoma removed at that time. Given early polyp recurrence she underwent follow-up colonoscopy on 07/12/2023. At that time prolonged inspection of the previous polypectomy site was performed and there was what appeared to be a relatively subtle flat sessile appearing tissue in the region measuring 10 mm. Elleview was injected and this was removed with a 9 mm cold snare in its entirety. Once again, pathology revealed tubular adenoma. Performing Provider:: Jeevan Shaw MD Referring Provider:: Luna Winn Sedation:: MAC sedation Procedure:: Patient history was obtained and appropriate physical examination was performed. Patient's medications and allergies were reviewed. Informed consent was obtained after explaining the benefits, alternatives, and risks of the procedure including, but not limited to, bleeding, perforation, missed lesions, and adverse reaction to anesthesia medications. Patient was transported to endoscopy procedure room. Patient was connected to monitoring devices. Throughout the procedure the patient's blood pressure, pulse, and oxygen saturations were monitored continuously. Patient identification and planned procedure were verified by the staff. Patient was positioned in lateral decubitus position. Digital anorectal exam was performed. Variable stiffness Olympus colonoscope was inserted and advanced under direct visualization to the cecum. Adequacy of the colonic preparation was noted. The colonoscope was advanced a short distance into the terminal ileum. The colonoscope was then slowly withdrawn while carefully examining the color, texture, anatomy, and integrity of the mucosoa circumferentially. Within the rectum retroflexion was performed. Colonoscope was then withdrawn. Impression: There was particulate opaque stool in the colon which required high-volume trans colonoscopic irrigation and suctioning. This was cleared. Area in the ascending colon where there is tattooing was identified. In this region there was a subtle possible early adenomatous polyp. Attempt was initially made to remove this with cold snare but it was very flat and subtle and sessile. Attempt was made to raise this with Georgie view. Cold snare was then used which removed a tiny portion. Polyp was so small that residual tissue was removed in a piecemeal fashion using cold biopsy forceps. She had some scattered rare diverticuli . Findings:: Possible early ascending polyp Diverticuli Recommendations:: Repeat colonoscopy pending pathology. Given the fact that she has had polyps possibly 1 to 2 years. Complications:: None immediate Estimated blood obtained (mL): 1 Colonoscopy Component Colonoscopy Component Was a colonoscopy performed during today's procedure?: Yes Recommended follow up colonoscopy of at least 10 years?: No If no, follow up colonoscopy recommended in ___ years?: See above Reason for not recommending >/= 10 yr follow-up interval?: See above
[2024-07-10 11:11] VITALS: BMI 35.5
[2024-07-10 11:22] VITALS: BP 108/64; PULSE 74; RESP 18; TEMP 36.6; O2SAT 95
[2024-07-10] MEDS: LACTATED RINGERS 1000ML 1,000 ML 25 ML IV (11:29)
--- NOTE | 2024-07-10 11:34 | P.PNANES_ITS ---
[facility] Disclaimer: The information contained in this section may have been updated after the patient was seen, as this information can be updated by other users. Medical History Hearing Loss Acute right otitis media Otalgia, right ear History of gastroesophageal reflux (GERD) Diabetes mellitus, type 2 Hyperlipidemia Hypertension Surgical History History of colonoscopy History of laparoscopic cholecystectomy History of lithotripsy History of tubal ligation Family History Other Family history of Alzheimer's disease History of breast cancer Social History (Updated 07/10/24 @ 11:08 by Salma Nye RN) Smoking Status: Never smoker second hand exposure: No alcohol intake: never substance use type: denies use current occupational status: retired Travel in the last 8 weeks: None household members: spouse housing: house current occupational exposures/hazards: No caffeine: Yes [facility] Anesthesia Checklist Patient Identification Patient Identification: Arm Band and Verbal (Name & ) Structural Data Admitted From: Home Planned Operative Procedure/s: Colonoscopy Consent for Planned Operative Procedure(s) Verified: Yes Verified Documents: Surgical Consent and History and Physical NPO Status Verified Time NPO: 00:00 Chart Verification Results Verified: CBC and BMP Additional verifications Fingerstick Blood Glucose: 77 Patient : No Anesthesia Reactions: No Previous Colonoscopy: Yes Cardiovascular Assessment Heart Sounds: S1 & S2 Pulse Rhythm: Irregular Peripheral Edema: No Airway Assessment Mallampati Score:: Class II C-Spine Mobility Assessed: Yes (FROM) TMJ Mobility Assessed: Yes Dentition: Good Dentition (Nothing loose per pt.) Neurological Assessment Level of Consciousness: Awake, Alert, Appropriate and Follows Commands Hx Seizures: No Numbness or tingling in extremities: No Anesthesia Plan Anesthesia Risk discussed: Yes Anesthesia Plan: Verified ASA Class: III Anesthesia Type: MAC
[2024-07-10 11:45] VITALS: O2SAT 97
[2024-07-10 12:22] VITALS: BP 105/56; PULSE 71; RESP 18; TEMP 36.3; O2SAT 97
[2024-07-10 12:32] VITALS: BP 102/56; PULSE 68; RESP 18; O2SAT 97
[2024-07-10 12:42] VITALS: BP 104/62; PULSE 79; RESP 18; O2SAT 98
[2024-07-10 12:52] VITALS: BP 105/58; PULSE 79; RESP 18; O2SAT 97
== END 2024-07-10 12:52 | disposition home or self-care (01) ==
PROVIDERS: PCP Nurse Practitioner Family; Visit Provider Surgery
PROC: 0DJD8ZZ Inspection of Lower Intestinal Tract, Via Natural or Artificial Opening Endoscopic (ICD-10-PCS; CPT 45380; principal; 2024-07-10 11:30)
DX: Z09 Encounter for follow-up examination after completed treatment for conditions other than malignant neoplasm (principal); Z86.0101 Personal history of adenomatous and serrated colon polyps; K57.30 Diverticulosis of large intestine without perforation or abscess without bleeding; D12.2 Benign neoplasm of ascending colon
CPT/HCPCS: 45380; 45381; 88305; J2704; J7120

== ENCOUNTER 2024-11-03 09:47 | Outpatient (CLI) | payer MEDICARE, SELFPAY ==
--- NOTE | 2024-11-03 09:52 | XR_ITS ---
FINAL REPORT CLINICAL HISTORY: LEFT HIP PAIN COMPARISON: None FINDINGS: LEFT HIP Two views of the left hip and an AP pelvis view were obtained. There is no acute fracture or dislocation. There is a right hip total joint prosthesis. The left hip joint spaces are well-preserved. There are mild hypertrophic changes at the acetabular margin. The visualized bony structures are well aligned. There is no acute soft tissue abnormality. There is a calcification in the mid pelvis which is favored to represent a calcified fibroid. IMPRESSION: Degenerative changes without acute abnormality identified. Reviewed, Interpreted and Dictated by Alcon Daniel MD Transcribed by Carmen Iglesias Authenticated and [facility]
--- NOTE | 2024-11-03 09:53 | XR_ITS ---
FINAL REPORT CLINICAL HISTORY: ACUTE UTI/LEFT FLANK PAIN COMPARISON: None FINDINGS: A single view of the abdomen was obtained. There is a nonobstructive bowel gas pattern. There are no abnormally dilated loops of small bowel. There are no abnormal calcifications. Surgical clip is noted in the right upper quadrant consistent with prior cholecystectomy. There are extensive hypertrophic changes of degenerative disc disease throughout the lumbar spine. There is no evidence of definite kidney stone. IMPRESSION: Diffuse hypertrophic changes of degenerative disc disease throughout the lumbar spine. Reviewed, Interpreted and Dictated by Alcon Daniel MD Transcribed by Carmen Iglesias Authenticated and [facility]
== END 2024-11-03 23:59 | disposition home or self-care (01) ==
LOC: RAD 09:48
PROVIDERS: PCP Nurse Practitioner Family; Visit Provider Nurse Practitioner Family
DX: M25.552 Pain in left hip (principal); N39.0 Urinary tract infection, site not specified; R10.9 Unspecified abdominal pain
CPT/HCPCS: 73502; 74018

== ENCOUNTER 2025-05-05 08:56 | Outpatient (CLI) | payer MEDICARE, SELFPAY ==
--- NOTE | 2025-05-05 09:00 | MM_ITS ---
PROCEDURE INFORMATION: Exam: MG Bilateral Screening 3D Mammography Exam date and time: 05/05/2025 9:29 AM Age: 70 years old Clinical indication: Screening examination TECHNIQUE: Imaging protocol: Bilateral Screening tomosynthesis and 2D mammography including computer-aided detection (CAD) when performed. COMPARISON: 1. MG MM DIG SCREENING MAMM BI W/CAD 11/29/2023 4:04 PM 2. MG MM DIG MAMM DX UNILAT LT CAD 01/20/2021 2:25 PM FINDINGS: MAMMOGRAPHY: Breast composition: The breasts are almost entirely fatty. Mass: None. Architectural distortion: None. Calcifications: No suspicious calcifications. Asymmetric density: None. Skin thickening: None. Axillary adenopathy: None. IMPRESSION: No mammographic evidence of malignancy. Annual screening is recommended unless otherwise clinically indicated. ASSESSMENT: BI-RADS Category 1: Negative.
--- NOTE | 2025-05-05 09:00 | XR_ITS ---
FINAL REPORT TECHNIQUE: Bone densitometry calculations of the lumbar spine and left hip were obtained. CLINICAL HISTORY: SCREENING COMPARISON: None FINDINGS: Using L1-4, the bone mineral density of the spine is 1.333 g/cm2, corresponding to T-score of 2.6 and a Z score of 4.7. This is within the range of normal. Using the left hip, the bone mineral density of the femoral neck is 0.672 g/cm2, corresponding to a T-score of -1.6 and a Z-score of 0.1. This is within the range of osteopenia. NOTE: T-score: Standard deviation compared with peak bone mass of young adult mean. *Following the recommendations of the International Society of Bone densitometry, classification of hip BMD is based on the lower of two T-scores; total hip or femoral neck. IMPRESSION: 1. Bone mineral density of the lumbar spine within the range of normal. 2. Bone mineral density of the left femoral neck within the range of osteopenia. Reviewed, Interpreted and Dictated by Sherry Wilson MD Transcribed by Nanci Piña Authenticated and [facility]
--- OUTSIDE RECORDS SUMMARY | 2025-05-05 09:19 | XMS_ITS | Clinical Summary ---
Author Organization [facility] Address [address] [place] [address] Care Team Providers Care Seamer Operator Name Role Phone Provider, No Known Primary Care Provider Unavail able Allergies No known active allergies Medications rosuvastatin (CRESTOR) 10 MG tablet Take 10 mg by mouth Daily. 0 Active benazepril-hydr ochlorthiazide (LOTENSIN HCT) 20-12.5 MG per tablet Take 1 tablet by mouth Daily. 0 Active pantoprazole (PROTONIX) 40 MG EC tablet Take 40 mg by mouth Daily. 0 Active metFORMIN (GLUCOPHAGE) 1000 MG tablet Take 1,000 mg by mouth 2 (Two) Times a Day With Meals. 1 po bid Active insulin degludec (Tresiba FlexTouch) 100 UNIT/ML solution pen-injector injection Inject 28 units subcutaneous daily. Appointment needed for additional refills. 15 mL 1 Active Active Problems Problem Noted Date Diagnosed Date Essential hypertension 07/25/2020 Assessment & Plan (07/25/2020 9:12 AM EST): bp is worse today. Will monitor for now and adjust meds if stays high Hypercholesteremia 07/25/2020 Assessment & Plan (07/25/2020 9:12 AM EST): Lipid levels were at goal In January. Stay on current treatment and recheck in 6 months Diabetes mellitus type 2, uncontrolled, with com plications 07/25/2020 Assessment & Plan (07/25/2020 9:14 AM EST): Diabetes is unchanged. Continue current treatment regimen. Diabetes will be reassessed in 6 months. Family History Medical History Relation Name Comments Alzheimer's disease Father Kidney disease Father renal failure Heart disease Maternal Grandfather Diabetes Maternal Grandmother Arthritis Mother Breast cancer Mother Relation Name Status Comments Father Maternal Grandfather Maternal Grandmother Mother Alive Social History Tobacco Use Types Packs/Day Years Used Date Smoking Tobacco: Never Smokeless Tobacco: Never Alcohol Use Standard Drinks/Week Comments Never 0 (1 standard drink = 0.6 oz pur e alcohol) AUDIT-C Answer Date Recorded Q1: How often do you have a drink containing alc ohol? Never 07/25/2020 Average Number of Drinks Not on file 020 Frequency of Binge Drinking Not on file 06/28 Abuse Screen Answer Date Recorded Unsafe at Home or Work/School Not on file Feels Threatened by Someone? Not on file 07/2023 Does Anyone Keep You from Co ntacting Others or Doint Things Outside the Home? Not on file 06/06/2023 Physical Sign of Abuse Present Not on file 1 Housing Stability Answer Date Recorded Current Living Arrangements Not on file 05/26 Potentially Unsafe Housing Conditions Not on whitney e 06/06/2023 Family and Community Support Answer Amos e Recorded Help with Day-to-Day Activities Not on file 06/06/2023 Lonely or Isolated Not on file 06/06/2023 Employment Answer Date Recorded Do you want help finding or keeping work or a mic b? Not on file 06/06/2023 Disabilities Answer Date Recorded Concentrating, Remembering, or Making Decisions Difficulty Not on file 06/06/2023 Doing Errands Independently Difficulty Not on fi le 06/06/2023 Education Answer Date Recorded Help with school or training? Not on file Preferred Language Not on file 06/06/2023 Comments Unknown Sex and Gender Information Value Date Recorded Sex Assigned at Not on file Legal Sex Female 8:38 AM EDT Gender Identity Not on file Sexual Orientation Not on file Last Filed Vital Signs Vital Sign Reading Time Taken Comments Blood Pressure 142/90 07/25/2020 8:45 AM EST Pulse 100 07/25/2020 8:45 AM EST Temperature 36.6 C (97.8 F) 07/25/2020 8:45 AM EST Respiratory Rate - - Oxygen Saturation 99% 07/25/2020 8:45 AM EST Inhaled Oxygen Concentration - - Weight 92.6 kg (204 lb 3.2 oz) 07/25/2020 8:45 A M EST Height 162.6 cm (5' 4 ) 07/25/2020 8:45 AM EST Body Mass Index 35.05 07/25/2020 8:45 AM EST Plan of Treatment Health Maintenance Due Date Last Done Comments DXA SCAN 1955 LIPID PANEL 1955 TDAP/TD VACCINES (1 - Tdap) 02/19/1975 MAMMOGRAM 1996 COLOGUARD 02/19/2001 COLON CANCER SCREENING 5 YEAR SIGMOIDOSCOPY 02/19/2001 COLONOSCOPY 02/19/2001 COLORECTAL CANCER SCREENING 02/19/2001 CT COLONOGRAPHY 02/19/2001 FECAL OCCULT BLOOD TEST 02/19/2001 FIT Testing (1 year) 02/19/2001 Pneumococcal Vaccine 50+ (1 of 1 - PCV) 02/19/2006 ZOSTER VACCINE (1 of 2) 02/19/2006 ANNUAL PHYSICAL 06/09/2020 HEPATITIS C SCREENING 06/09/2020 COVID-19 Vaccine ( - season) 2025 INFLUENZA VACCINE 05/26/2025 HEMOGLOBIN A1C Discontinued 07/25/2020 Procedures Procedure Name Priority Date/Time Associated Diagnosis Comments POCT GLYCOSYLATED HEMOGLOBIN (HGB A1C) Routine 07/25/2020 9:11 AM EST Diabetes mellitus type 2, uncontrolled, with complications (CMS/HCC) from Last 3 Months or Most Recently Relevant to Health Maintenance Results * POC Glycosylated Hemoglobin (Hb A1C) (07/25/2020 9:11 AM EST) Hemoglobin A1C 6.3 % [facility] Lot Number [id number] [facility] Expiration Date 03/30/2022 [facility] Blood 07/25/2020 9:11 AM EST Barrington Padilla MD POINT OF CARE TEST ORD ERABLES Final Result [facility]
[address] [place] [address], [place] [phone] from Last 3 Months or Most Recently Relevant to Health Maintenance Insurance Care Teams Seamer Operator Relationship Specialty Start Date End Date Provider, No Known [facility] [place] [address] PCP - General 07/25/20
--- OUTSIDE RECORDS SUMMARY | 2025-05-05 09:19 | XMS_ITS | Referral Summary ---
Author Organization [employer] ([place], [place], [place], [place]) Address [address] [place] [address] Care Team Providers Care Wordpress Developer Name Role Phone Tatum Bernice WALT Primary Care Provider [phone] Allergies No known active allergies Medications rosuvastatin (CRESTOR) 20 MG tablet Take 1 tablet (20 mg total) by mouth daily. Active benazepril-hydro chlorthiazide (LOTENSIN HCT) 20-12.5 mg per tablet Take 1 tablet by mouth daily. Active pantoprazole (PROTONIX) 40 MG tablet Take 1 tablet (40 mg total) by mouth daily. Active magnesium oxide 400 mg magnesium Tab Take 2 tablets (800 mg total) by mouth 2 (two) times daily. Active cyanocobalamin (VITAMIN B-12) 1000 MCG tablet Take 1 tablet (1,000 mcg total) by mouth daily. Active ascorbic acid, vitamin C, (VITAMIN C) 1000 MG tablet Take 1 tablet (1,000 mg total) by mouth daily. Active CRANBERRY ORAL Take 1 tablet by mouth daily. Active vitamin E 400 UNIT capsule Take 1 capsule (400 Units total) by mouth daily. Active BIOTIN ORAL Take 1 tablet by mouth daily. Active mv-mn/iron/folic acid/herb 190 (VITAMIN D3 COMPLETE ORAL) Take 1 tablet by mouth daily. Active garlic 1,000 mg Cap Take 1 capsule by mouth daily. 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 90 tablet 3 11/11/2023 Active True Metrix Glucose Test Strip strp SMARTSIG:Via Meter 03/27/2024 Active busPIRone (BUSPAR) 5 MG tablet Take 1 tablet (5 mg total) by mouth 2 (two) times daily. 05/20/2024 Active escitalopram (LEXAPRO) 20 MG tablet Take 1 tablet (20 mg total) by mouth daily. 05/20/2024 Active traZODone (DESYREL) 100 MG tablet Take 1 tablet (100 mg total) by mouth nightly. 05/21/2024 Active Tresiba FlexTouch U-100 100 unit/mL (3 mL) inpn Inject subcutaneous ly. 04/03/2024 Active Active Problems Problem Noted Date Diagnosed Date Pre-operative clearance 06/04/2023 Chronic pain 05/31/2023 Rectocele 05/31/2023 Depression with anxiety 05/31/2023 Recurrent UTI 05/31/2023 Abnormal mammogram of left breast 05/31/2023 Left hip pain 05/31/2023 Type 2 diabetes mellitus 05/31/2023 Herpes zoster 05/31/2023 senior care (current) use of insulin 05/31/2023 Chronic insomnia 05/31/2023 Varicose vein of leg 05/31/2023 Anemia 05/31/2023 Midline cystocele 05/31/2023 Hypertension 05/31/2023 Chronic left-sided low back pain without sciatic a 05/31/2023 Abnormal gait 05/31/2023 Pancreatitis, gallstone 05/31/2023 Focal lymphocytic colitis 05/31/2023 Social History Tobacco Use Types Packs/Day Years Used Date Smoking Tobacco: Never Smokeless Tobacco: Never Tobacco Cessation:Counseling Given: Not Answered Alcohol Use Standard Drinks/Week Comments Never 0 (1 standard drink = 0.6 oz pur e alcohol) caffeine use Food Insecurity Answer Date Recorded Food run out past 12 months Not on file 08/26 Food did not last past 12 months Not on file 09/06/2023 Employment Answer Date Recorded Help finding and keeping a job Not on file 0 09/06/2023 Family and Community Support Answer Amos e Recorded Help with Day to Day Activities Not on file 09/06/2023 Feeling Lonely or Isolated Not on file 09/06 Educational Attainment Answer Date Dima rded Speak language other than Spanish at home Not on file 09/06/2023 Want help with school or training Not on file 09/06/2023 Substance Use Answer Date Recorded Used prescription meds for non-medical reasons N ot on file 09/06/2023 Used illegal drugs past 12 months Not on file 09/06/2023 Comments Unknown Sex and Gender Information Value Date Recorded Sex Assigned at Not on file Legal Sex Female 6:20 PM CDT Gender Identity Not on file Sexual Orientation Not on file Last Filed Vital Signs Vital Sign Reading Time Taken Comments Blood Pressure 120/70 06/01/2024 3:10 PM EDT Pulse 83 06/01/2024 3:10 PM EDT Temperature 36.4 C (97.5 F) 07/02/2023 7:12 AM EST Respiratory Rate 20 06/01/2024 3:10 PM EDT Oxygen Saturation 96% 06/01/2024 3:10 PM EDT Inhaled Oxygen Concentration - - Weight 98.4 kg (217 lb) 06/01/2024 3:10 PM EDT Height 162.6 cm (5' 4 ) 06/01/2024 3:10 PM EDT Body Mass Index 37.25 06/01/2024 3:10 PM EDT Plan of Treatment Not on file Insurance [facility] MEDICARE PPO Advance Directives For more information, please contact: [phone] * Full Code (Latest Code Status on File) Date Activated Date Inactivated Comments 07/02/2023 8:22 AM 07/03/2023 4:26 AM * Full Code Date Activated Date Inactivated Comments 07/02/2023 6:03 AM 07/02/2023 8:22 AM Care Teams Wordpress Developer Relationship Specialty Start Date End Date Bernice Winn, WALT [address] [address] PCP - General Nurse Practitioner 05/29/23
--- OUTSIDE RECORDS SUMMARY | 2025-05-05 09:19 | XMS_ITS | Clinical Summary ---
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) Take 1 tablet [...] 2 diabetes mellitus 05/31/2023 Herpes zoster 05/31/2023 shelter (current) use of insulin 05/31/2023 Chronic insomnia 05/31/2023 Varicose vein of leg 05/31/2023 Anemia 05/31/2023 Midline cystocele 05/31/2023 Hypertension 05/31/2023 Chronic left-sided low back pain without sciatic a 05/31/2023 Abnormal gait 05/31/2023 Pancreatitis, gallstone 05/31/2023 Focal lymphocytic colitis 05/31/2023 Family History Medical History Relation Name Comments Alzheimer's disease Father Heart disease Maternal Grandfather Hypertension Maternal Grandfather Diabetes Maternal Grandmother Hypertension Maternal Grandmother Cancer Mother Relation Name Status Comments Father Maternal Grandfather Maternal Grandmother Mother Paternal Grandfather Paternal Grandmother Social History Tobacco Use Types Packs/Day Years [...] Date Dima rded Speak language other than Hungarian at home Not on file 09/06/2023 Want [...] 06/01/2024 3:10 PM EDT Plan of Treatment Health Maintenance Due Date Last Done Comments CT Colonography 1955 Colonoscopy 1955 Colorectal Cancer Screening 1955 DXA SCAN 1955 Diabetic Kidney Health Evalu ation (KED) 1955 FOBT/FIT 1955 Fit-DNA (Cologuard) 1955 Sigmoidoscopy 1955 Diabetic Eye Exam 02/19/1966 Hepatitis C Screening 02/19/1974 DTAP/TDAP/TD VACCINES (1 - Tdap) 02/19/1975 Breast Cancer Screening 1996 Shingles Vaccine (Zoster) (1 of 2) 02/19/2006 Respiratory Syncytial Virus (RSV) Adult or (1 - Risk 60-74 years 1-dose series) 2016 Medicare Initial AWV [id number] 01/25/2022 Pneumococcal 50+ years (2 of 2 - PCV) 05/22/2022 05/22/2021 Hemoglobin A1C 05/31/2023 Falls Risk Screening 08/26/2024 COVID-19 VACCINE (5 - 2024-2 6 season) 2025 12/14/2021, 06/08/2021, 11/24/2020, Additional history exists Influenza Vaccine (#1) 2025 , 05/22/2021, 05/23/2020 Tobacco Cessation Counseling and Screening (12+) 06/01/2025 06/01/2024 Insurance [employer] MEDICARE PPO Advance Directives For more information, please contact: [phone] * Full Code (Latest Code Status on File) Date Activated Date Inactivated Comments 07/02/2023 8:22 AM 07/03/2023 4:26 AM * Full Code Date Activated Date Inactivated Comments 07/02/2023 6:03 AM 07/02/2023 8:22 AM Care Teams General Forecaster Relationship Specialty Start Date End Date Bernice Winn APRN [address] [address] PCP - General Nurse Practitioner 05/29/23
--- OUTSIDE RECORDS SUMMARY | 2025-05-05 09:19 | XMS_ITS | Encounter Summary ---
Author Organization [employer] ([place], [place], [place], [place]) Address [address] [place] [address] Care Team Providers Care Assembler Lay Ups Name Role Phone Bernice Winn WALT Primary Care Provider [phone] Reason for Visit * Reason Comments Medication Refill Encounter Details Date Type Department Care Team (Late st Contact Info) Description 08/31/2024 Refill [facility] Cardiology - [place] [address] [place] [address] Hayden Evangelista MD [address] [facility] [address] [place] [address] Type 2 diabetes mellitus without complication, unspecified whether half-way insulin use (HCC) Social History Tobacco Use Types Packs/Day Years [...] Date Dima rded Speak language other than Montserratian at home Not on file 09/06/2023 Want [...] on file Sexual Orientation Not on file documented as of this encounter Plan of Treatment Not on file documented as of this encounter Visit Diagnoses Diagnosis Type 2 diabetes mellitus without complication, 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
== END 2025-05-05 23:59 | disposition home or self-care (01) ==
LOC: RAD 08:57
PROVIDERS: PCP Nurse Practitioner Family; Visit Provider Nurse Practitioner Family
DX: Z12.31 Encounter for screening mammogram for malignant neoplasm of breast (principal); M85.852 Other specified disorders of bone density and structure, left thigh; R92.313 Mammographic fatty tissue density, bilateral breasts; Z78.0 Asymptomatic menopausal state
CPT/HCPCS: 77063; 77067; 77080

== ENCOUNTER 2025-07-30 06:02 | Day surgery (SDC) | payer MEDICARE, SELFPAY ==
[2025-07-26 10:57] VITALS: BMI 35.5
--- NOTE | 2025-07-30 06:18 | EXP.GEN.HP ---
HPI HPI HPI: Patient is a 70-year-old female. She has a history of anemia. I had performed EGD and colonoscopy on 01/18/2021 which was most notable for large subtle sessile ascending colon polyp which required Eleview injection and piecemeal polypectomy using hot snare. The area was marked. This returned as sessile ascending tubular adenoma. Given the large size of this polyp she underwent follow-up colonoscopy on 06/15/2022 at which time there was possible recurrent polyp at the previous polypectomy site which was removed using hot snare and biopsy forceps. Pathology returned as tubular adenoma. She also had an additional adjacent but separate tubular adenoma removed at that time. Given early polyp recurrence she underwent follow-up colonoscopy on 07/12/2023. At that time prolonged inspection of the previous polypectomy site was performed and there was what appeared to be a relatively subtle flat sessile appearing tissue in the region measuring 10 mm. Elleview was injected and this was removed with a 9 mm cold snare in its entirety. Once again, pathology revealed tubular adenoma. Colonoscopy was performed on 07/10/2024. In the ascending colon near the previous tattoo joanna there was a possible early adenomatous polyp that was very flat, subtle, and sessile requiring injection of Georgie view and residual tissue removal with biopsy forceps and pathology revealed tubular adenoma. . [facility] Disclaimer: The information contained in this section may have been updated after the patient was seen, as this information can be updated by other users. Medical History Hearing Loss Acute right otitis media Otalgia, right ear History of gastroesophageal reflux (GERD) Diabetes mellitus, type 2 Hyperlipidemia Hypertension Surgical History History of colonoscopy History of laparoscopic cholecystectomy History of lithotripsy History of tubal ligation Family History Other Family history of Alzheimer's disease History of breast cancer Social History (Updated 07/30/25 @ 06:30 by Addie Diehl RN) Smoking Status: Never smoker second hand exposure: No alcohol intake: never substance use type: denies use current occupational status: retired Travel in the last 8 weeks?: None household members: spouse housing: house current occupational exposures/hazards: No caffeine: Yes Have you lived/traveled outside US in past 30 days?: No Contact w/someone who lives/traveled outside US past 30 days?: No Exposure to someone with infectious disease in past 14 days?: No Do you have a fever (greater than 100.4 F or 38 C)?: No Have you tested positive for COVID-19?: No Exposed to someone with COVID-19 in past 14 days?: No Do you have a sore throat?: No Do you have a cough?: No Do you have any weakness?: No Are you experiencing any nausea/vomitting?: No Do you have any diarrhea?: No Are you experiencing any unusual bleeding?: No Do you have any muscle aches/pain?: No Do you have any abdominal pain?: No Are you experiencing loss of taste or smell?: No Other Medical History Have you received the Flu Vaccine for this season: Yes Have you received the Pneumonia Vaccine: No Meds Home Medications and Allergies Home Medications ?Medication ?Instructions ?Recorded ?Confirmed ?Type ascorbic acid (vitamin C) 1,000 mg 1 g PO DAILY Supplement 04/25/18 07/30/25 History tablet cranberry extract 405 mg capsule 405 mg PO DAILY Supplement 04/25/18 07/30/25 History cyanocobalamin (vitamin B-12) 2,500 mcg PO DAILY Supplement 04/25/18 07/30/25 History 2,500 mcg tablet magnesium hydroxide 400 mg (170 mg 1 tab PO DAILY Supplement 04/25/18 07/30/25 History magnesium) chewable tablet vitamin E 200 unit capsule 200 unit PO DAILY Supplement 04/25/18 07/30/25 History benazepril 20 1 each PO DAILY High blood pressure 09/25/18 07/30/25 History mg-hydrochlorothiazide 12.5 mg tablet (Lotensin HCT) insulin degludec 100 unit/mL (3 24 unit SQ DAILY DIABETIC 01/16/21 07/30/25 History mL) subcutaneous pen (Tresiba FlexTouch U-100 insulin) pantoprazole 40 mg tablet,delayed 40 mg PO DAILY STOMACH 01/16/21 07/30/25 History release escitalopram oxalate 10 mg tablet 10 mg PO DAILY 07/11/23 07/30/25 History (Lexapro) rosuvastatin 20 mg tablet 20 mg PO DAILY 10/03/23 07/30/25 History trazodone 100 mg tablet 100 mg PO HS 10/03/23 07/30/25 History sodium,potassium,mag sulfates 17.5 See Rx Instructions PO .COMPLEX 07/13/25 07/30/25 Rx gram-3.13 gram-1.6 gram oral soln #354 mL (Suprep Bowel Prep Kit) aspirin 81 mg tablet 81 mg PO DAILY 07/26/25 07/30/25 History New Prescriptions to Start Prescriptions: Allergies Allergy/AdvReac Type Severity Reaction Status Date / Time No Known Allergies Allergy Verified 07/30/25 06:20 Exam Constitutional Constitutional: no acute distress *Routine HEENT Exam Head: Present normocephalic Eye: Present EOMI and PERRL ENT: Present mucous membranes moist *Routine Neck Exam Neck: Present supple; Absent lymphadenopathy *Routine Respiratory Exam Respiratory: Present CTA bilaterally *Routine Cardiovascular Exam Cardiovascular: Present RRR *Routine Abdominal Exam Abdominal: Present soft and normoactive bowel sounds; Absent tenderness *Routine Rectal Exam Rectal:: deferred *Routine Genitalia Exam Genitalia:: deferred *Routine Extremities Exam Extremities: Absent cyanosis, clubbing or edema *Routine Skin Exam Skin: Present warm; Absent rash *Routine Neurological Exam Neurological: Present alert and oriented X3 Assessment and Plan *Assessment and plan (1) Tubular adenoma of colon: Status: Acute Category: Medical Code(s): D12.6 - Benign neoplasm of colon, unspecified Plan Colonoscopy
[2025-07-30 06:23] VITALS: BP 135/70; PULSE 91; RESP 16; TEMP 36.1; O2SAT 94; BMI 35.5
[2025-07-30] MEDS: LACTATED RINGERS 1000ML 1,000 ML 50 ML IV (06:32)
[2025-07-30 06:33] LABS: POC Glucose,Bedside 79 gm/dL (70-110)
--- NOTE | 2025-07-30 07:07 | P.PNANES_ITS ---
[facility] Disclaimer: The information contained in this section may have been updated after the patient was seen, as this information can be updated by other users. Medical History Hearing Loss Acute right otitis media Otalgia, right ear History of gastroesophageal reflux (GERD) Diabetes mellitus, type 2 Hyperlipidemia Hypertension Surgical History History of colonoscopy History of laparoscopic cholecystectomy History of lithotripsy History of tubal ligation Family History Other Family history of Alzheimer's disease History of breast cancer Social History (Updated 07/30/25 @ 06:30 by Addie Diehl RN) Smoking Status: Never smoker second hand exposure: No alcohol intake: never substance use type: denies use current occupational status: retired Travel in the last 8 weeks?: None household members: spouse housing: house current occupational exposures/hazards: No caffeine: Yes Have you lived/traveled outside US in past 30 days?: No Contact w/someone who lives/traveled outside US past 30 days?: No Exposure to someone with infectious disease in past 14 days?: No Do you have a fever (greater than 100.4 F or 38 C)?: No Have you tested positive for COVID-19?: No Exposed to someone with COVID-19 in past 14 days?: No Do you have a sore throat?: No Do you have a cough?: No Do you have any weakness?: No Are you experiencing any nausea/vomitting?: No Do you have any diarrhea?: No Are you experiencing any unusual bleeding?: No Do you have any muscle aches/pain?: No Do you have any abdominal pain?: No Are you experiencing loss of taste or smell?: No [facility] Anesthesia Checklist Patient Identification Patient Identification: Arm Band and Verbal (Name & ) Structural Data Admitted From: Home Planned Operative Procedure/s: Colonoscopy Consent for Planned Operative Procedure(s) Verified: Yes Verified Documents: Surgical Consent NPO Status Verified Time NPO: 00:00 Chart Verification Results Verified: None Additional verifications Fingerstick Blood Glucose: 79 Anesthesia Reactions: No Airway Assessment Mallampati Score:: Class II C-Spine Mobility Assessed: Yes TMJ Mobility Assessed: Yes Dentition: Good Dentition Neurological Assessment Level of Consciousness: Awake, Alert and Appropriate Hx Seizures: No Numbness or tingling in extremities: No Anesthesia Plan Anesthesia Risk discussed: Yes Anesthesia Plan: Verified ASA Class: II Anesthesia Type: MAC
--- NOTE | 2025-07-30 07:46 | HMH.SCOPE ---
Procedure: Date: 07/30/25 Patient Date of :: 1955 Procedure Performed:: Total colonoscopy to terminal ileum with polypectomy using hot snare Indications:: Patient is a 70-year-old female. She has a history of anemia. I had performed EGD and colonoscopy on 01/18/2021 which was most notable for large subtle sessile ascending colon polyp which required Eleview injection and piecemeal polypectomy using hot snare. The area was marked. This returned as sessile ascending tubular adenoma. Given the large size of this polyp she underwent follow-up colonoscopy on 06/15/2022 at which time there was possible recurrent polyp at the previous polypectomy site which was removed using hot snare and biopsy forceps. Pathology returned as tubular adenoma. She also had an additional adjacent but separate tubular adenoma removed at that time. Given early polyp recurrence she underwent follow-up colonoscopy on 07/12/2023. At that time prolonged inspection of the previous polypectomy site was performed and there was what appeared to be a relatively subtle flat sessile appearing tissue in the region measuring 10 mm. Elleview was injected and this was removed with a 9 mm cold snare in its entirety. Once again, pathology revealed tubular adenoma. Colonoscopy was performed on 07/10/2024. In the ascending colon near the previous tattoo joanna there was a possible early adenomatous polyp that was very flat, subtle, and sessile requiring injection of Georgie view and residual tissue removal with biopsy forceps and pathology revealed tubular adenoma. . Performing Provider:: Jeevan Shaw MD Referring Provider:: Luna Winn Sedation:: MAC sedation Procedure:: Patient history was obtained and appropriate physical examination was performed. Patient's medications and allergies were reviewed. Informed consent was obtained after explaining the benefits, alternatives, and risks of the procedure including, but not limited to, bleeding, perforation, missed lesions, and adverse reaction to anesthesia medications. Patient was transported to endoscopy procedure room. Patient was connected to monitoring devices. Throughout the procedure the patient's blood pressure, pulse, and oxygen saturations were monitored continuously. Patient identification and planned procedure were verified by the staff. Patient was positioned in lateral decubitus position. Digital anorectal exam was performed. Variable stiffness Olympus colonoscope was inserted and advanced under direct visualization to the cecum. Adequacy of the colonic preparation was noted. The colonoscope was advanced a short distance into the terminal ileum. The colonoscope was then slowly withdrawn while carefully examining the color, texture, anatomy, and integrity of the mucosoa circumferentially. Within the rectum retroflexion was performed. Colonoscope was then withdrawn. Impression: Transverse colon and left colon had excellent prep. Change the cecum there was part to lift liquid actually having the appearance of very fine aquarium gravel. High-volume trans colonoscopic irrigation and suctioning was performed to allow for adequate visualization. Ascending colon site of previous tattoo joanna was identified. There was a an adenomatous appearing polyp in this location. Given the fact that she has had repeated polyps of this area this was removed with hot snare in an attempt to hopefully prevent possible recurrence. Residual tissue was removed with biopsy forceps. The left colon there was some scattered diverticulosis. Findings:: Polyp as noted Sigmoid diverticulosis Recommendations:: Likely repeat colonoscopy 1 year Complications:: None immediately apparent Estimated blood obtained (mL): 1 Colonoscopy Component Colonoscopy Component Was a colonoscopy performed during today's procedure?: Yes Recommended follow up colonoscopy of at least 10 years?: No If no, follow up colonoscopy recommended in ___ years?: See above Reason for not recommending >/= 10 yr follow-up interval?: See above
[2025-07-30 07:48] VITALS: BP 94/46; PULSE 88; RESP 16; TEMP 36.2; O2SAT 96
[2025-07-30 07:58] VITALS: BP 110/62; PULSE 80; RESP 18; TEMP 36.2; O2SAT 97
[2025-07-30 08:08] VITALS: BP 117/80; PULSE 86; RESP 16; TEMP 36.2; O2SAT 97
[2025-07-30 08:18] VITALS: BP 124/74; PULSE 83; RESP 18; TEMP 36.2; O2SAT 97
[2025-07-30 08:22] LABS: POC Glucose,Bedside 75 gm/dL (70-110)
== END 2025-07-30 08:18 | disposition home or self-care (01) ==
PROVIDERS: PCP Nurse Practitioner Family; Visit Provider Surgery
PROC: 0DJD8ZZ Inspection of Lower Intestinal Tract, Via Natural or Artificial Opening Endoscopic (ICD-10-PCS; principal; 2025-07-30 07:30)
DX: D12.6 Benign neoplasm of colon, unspecified (principal); E11.9 Type 2 diabetes mellitus without complications; H91.90 Unspecified hearing loss, unspecified ear; K21.9 Gastro-esophageal reflux disease without esophagitis; E78.5 Hyperlipidemia, unspecified; I10 Essential (primary) hypertension; Z90.49 Acquired absence of other specified parts of digestive tract; Z98.51 Tubal ligation status
CPT/HCPCS: 45380; 82962; J2003; J2704; J7120